=== PATIENT | male | born 1975 | race Two or more races ===

== ENCOUNTER 2024-01-03 12:27 | Emergency (ER) | payer BC ==
[~2024-01-03] VITALS: Ht 172.7 cm; Wt 77.1 kg
[2024-01-03 12:52] VITALS: BP 110/76; TEMP 97.9; O2SAT 99
[2024-01-03] MEDS ORDERED: IBUP-1955 PO (14:03)
[2024-01-03] MEDS ORDERED: HYDR-4303 PO (14:03)
== END 2024-01-03 14:37 | disposition home or self-care (01) ==
LOC: ER 13:02
DX: S52.501A Unspecified fracture of the lower end of right radius, initial encounter for closed fracture (principal); W50.0XXA Accidental hit or strike by another person, initial encounter; Y93.62 Activity, american flag or touch football; Y92.89 Other specified places as the place of occurrence of the external cause; Y99.8 Other external cause status
CPT/HCPCS: 73110